=== PATIENT | male | born 1975 | race African-American/Black ===

== ENCOUNTER 2017-01-16 19:17 | Inpatient (IN) | payer MEDICARE ==
--- NOTE | ~2017-01-16 | HP ---
Unit #: [id number] #: [id number] Patient: MARILEE LYONS [id number] [address] [place], [place] [address] [id number] I MR#: [id number] NAME: MARILEE LYONS ROOM: 332 Age: 41 Sex: M Admission Date: 01/17/2017 : 1975 Attending Physician: Pily Lamb M.D. Primary Care Physician: No Primary Care Physician HISTORY AND PHYSICAL CHIEF COMPLAINT Chest pain, nausea, vomiting, low grade fever. HISTORY This pleasant 41-year-old male with IDDM, hypertension, CAD, is admitted for nausea, vomiting, low grade fever and chest pain. The patient states that he was in his usual state of health until two weeks prior to admission when he noticed orthostatic lightheadedness. Two days ago began to experience vague non-radiating chest discomfort with shortness of breath and generalized myalgias. Yesterday, nausea, vomiting, feeling hot and diaphoretic. Underwent his usual dialysis yesterday. He presented to this emergency department this evening with a low grade temperature but his other vital signs were stable. In the ER, he had multiple episodes of non-bloody nausea and vomiting, became quite diaphoretic and tachycardic with these episodes. He was treated with Zofran, morphine, given vancomycin after IV blood cultures, and I asked that Reglan and a small dose of Lopressor be administered. The patient has not been able to keep down his usual medicines today. EKG is unchanged. Cardiac enzymes are negative. PAST MEDICAL HISTORY 1. End stage renal failure, on hemodialysis Tuesdays, and Saturdays by Dr. Johnston. The patient has a left upper arm shunt which is not working, and has a right chest dialysis catheter. 2. DVT and PE anticoagulated with Coumadin. 3. Hypothyroidism. 4. IDDM with gastroparesis. 5. Essential hypertension. 6. History of orthostatic hypotension. 7. GERD. 8. CAD with a chronically occluded obtuse marginal branch with collaterals on cardiac catheterization 11/2015. Normal ejection fraction. 9. GERD. 10. I and D of a facial abscess. 11. 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 ALLERGIES No known drug allergies. HOME MEDICATIONS The best we can determine include: 1. NovoLog 20 units in the morning, 26 units at lunch and dinner. Unit #: [id number] #: [id number] Patient: MARILEE LYONS 2. Levemir 45 units in the morning, 40 units in the evening. 3. P.r.n. Phenergan. 4. Zanaflex 2 mg q.6 hours p.r.n. 5. Coumadin 7.5 mg daily as directed. 6. Hydrocodone 7.5 q.4 hours as needed. 7. Cymbalta 60 mg b.i.d. 8. Lasix 40 mg b.i.d. 9. Norvasc 10 mg daily. 10. Aspirin 81 mg daily. 11. Lipitor 80 mg daily. 12. Coreg 25 mg b.i.d. 13. Clonidine 0.3 mg t.i.d. 14. Imodium. 15. Imdur 60 mg daily. 16. Synthroid 0.05 mg daily. 17. Linzess 145 mg q. a.m. 18. Reglan 5 mg q.i.d. FAMILY HISTORY CAD. SOCIAL HISTORY The patient lives alone. Lifelong nonsmoker, does not drink alcohol. REVIEW OF SYSTEMS Chest pain, diaphoresis, feeling hot, renal failure, CAD, diabetes, gastroparesis, blood clots, hypertension, hyperlipidemia, GERD, above mentioned surgeries, chronic wound over the left foot. Nausea, vomiting, possible lightheadedness. All other systems were reviewed and are otherwise negative. PHYSICAL EXAMINATION GENERAL APPEARANCE: 51-year-old male who becomes quite diaphoretic and tachycardic while vomiting. VITAL SIGNS: Temperature 99.2, pulse 100, respirations 17, blood pressure 128/85. O2 saturation 100% on room air. HEENT: Eyes PERRLA. Extraocular muscles are intact. Pharynx is benign with poor dentition. NECK: Supple without adenopathy or thyromegaly. CHEST: Clear. CARDIAC: Normal S1 and S2 without definite murmur. There is a dialysis catheter in the right upper chest, minimally tender at the insertion site with sutures present. ABDOMEN: Bowel sounds are present. The patient is tender in the epigastric right and left upper quadrants without rebound or guarding. No hepatosplenomegaly. EXTREMITIES: Without edema. Pedal pulses are diminished. There is an ulcer plantar aspect left foot lateral MCP area. Status post amputation of the fourth and fifth toes. NEUROLOGIC EXAM: The patient is awake, alert, oriented. Cranial nerves are intact. Equal strength throughout. DIAGNOSTIC STUDIES LABORATORY: Admission labs - hematocrit is 40.8, normal white count and platelet count. INR is 5, PTT is 69. SMA-12 - glucose 203, BUN 43, creatinine 5.1, sodium 132, chloride is 94. Protein 8.6, alkaline phos. 101, lactic is 2.1. Unit #: [id number] #: [id number] Patient: MARILEE LYONS Cardiac markers negative. IMAGING: Head CT - chronic left thalamic appearing CVA, arterial calcifications. Chest x-ray - no acute disease. CARDIOVASCULAR: EKG - sinus rhythm, rate 88. Nonspecific ST wave abnormalities which are unchanged from before. ASSESSMENT 1. Nausea and vomiting which may be related to gastroparesis. 2. Low grade temperature, rule out right chest dialysis catheter infection. 3. Episodes of nonspecific chest pain in patient with known coronary artery disease. 4. Coumadin toxicity. 5. History of deep venous thrombosis/pulmonary embolism. 6. End stage renal failure, on hemodialysis Tuesdays, and Saturdays. 7. Hypothyroidism. 8. Insulin dependent diabetes mellitus with gastroparesis. 9. Hypertension. 10. Hyperlipidemia. 11. Left foot ulcer, [facility]. PLANS 1. Serial cardiac enzymes, consult cardiology. 2. Hold Coumadin until INR decreases. 3. IV Reglan, Zofran, place on proton pump inhibitor for now. 4. Antibiotics pending blood culture results. Will also ask for a urinalysis. 5. Patient's distributor publications to consult. 6. Check amylase, lipase. 7. Further workup depending on above. Dictated by Pily Lamb M.D. VINITA/travis TD: 01/17/2017 05:04 JOB #: [id number] HISTORY AND PHYSICAL Page 1 of 1 X Pily Lamb MD HISTORY AND PHYSICAL
--- NOTE | ~2017-01-16 | CO ---
Unit #: [id number] #: [id number] Patient: MARILEE LYONS [id number] [facility]. [place] [address] [facility]. [place], [place] [address] [id number] I MR#: [id number] NAME: MARILEE LYONS ROOM: 332 Age: 41 Sex: M Admission Date: 01/16/2017 : 1975 Attending Physician: Lvaern Weeks M.D. Primary Care Physician: No Primary Care Physician CONSULTATION REPORT HISTORY OF PRESENT ILLNESS This is a 41-year-old -S[place]i male who has a history of having previous stents placed a few years back and had his last heart catheterization in 2015 that reveals a chronic occlusion to the origin of the first obtuse marginal branch of the circumflex that had good collaterals and widely patent stents. Ejection fraction is 55% to 60%. He is a diabetic, has hypertension, hyperlipidemia, chronic kidney disease, has been on dialysis, history of DVT and PEs on Coumadin, who came to the emergency room yesterday after having a couple days of nausea and vomiting, abdominal pain and low-grade fever. Patient had been started on dialysis in October. He had a fistula but says he was in [facility] the first December with the fistula clotted. He now has a [facility] for his dialysis. According to the patient, he was at dialysis on Tuesday and something happened to the equipment that they only ran him 30 minutes on the machine. He went back Tuesday and did have his dialysis session completed. He says though he was feeling some nausea and was just not feeling well on Tuesday. After he left dialysis on Tuesday he had to insole tack puller hand on the way home and throw up. He said that he then has been having persistent nausea and nonbloody emesis. He denies any diarrhea. He says he just feels generalized muscle aches and having a low-grade fever. He did have reports of having some substernal chest tightness when he was vomiting but he said he denied any of the chest discomfort radiating up into his neck, bilateral jaws, shoulders, arms or elbows. He said he was very lightheaded on the day of admission but denies any presyncope or syncopal episodes. He would have some diaphoresis and feeling hot and flushed while he was vomiting. Next, in the emergency room patient's blood pressure was elevated and he did have an episode of emesis and his blood pressure was 128/85, heart rate was 100, respirations 18, temperature 99.2, O2 sats 100% on room air. Initial cardiac enzymes are negative. The patient's creatinine is 5.2 and sodium 131, potassium is 3.7, lactic acid is 21. His INR is 5.0. Patient was not able to take any of his oral medications the whole day before admission. He was started on IV fluids and IV antibiotics after culture was obtained. He also received some IV morphine and Zofran. Chest x-ray did not show anything acute and a CT of his head did not show anything acute but a chronic small lacunar infarct. Cardiology consulted to assist with evaluation and management. Patient says he sees Dr. Valentine and has an appointment with him in a couple of weeks. PAST MEDICAL HISTORY 1. Coronary artery disease. Previous PCI and stent x2 in the origin of the first obtuse marginal, followed by a stent to the distal vessel. Unit #: [id number] #: [id number] Patient: MARILEE LYONS Details unavailable. 2. Last reported cardiac cath 11/[address] Garcia at [facility] revealed an EF of 60%, left main was normal, LAD had a proximal 40% stenosis and a mid 40% to 50% stenosis. Next, ramus intermedius branch had a 30% to 40% stenosis. Next, the circumflex had an occlusion to the origin of the first obtuse marginal branch but it had good collaterals with a widely patent stent in the distal vessel. Next, RCA had a 50% proximal stenosis and a 40% to 50% mid stenosis. 3. In 05/2016 Lexiscan-Cardiolite stress test at [facility] ejection fraction 61%, no ischemia. 4. In 05/2016 two-D echo LVEF of 55% to 60% with moderate left ventricular hypertrophy and mild mitral regurgitation. 5. Hypertension. 6. Diabetes mellitus type 2. 7. Hyperlipidemia. 8. Chronic kidney disease, now on dialysis. 9. Hypothyroidism. 10. History of deep vein thrombosis and PE, on Coumadin. 11. Gastroesophageal reflux disease. 12. Nonsmoker. 13. Orthostatic hypotension. PAST SURGICAL HISTORY 1. Status post PCI and stents at the origin of the first obtuse marginal and also to the distal obtuse marginal branch. 2. I/D of a facial abscess. 3. Amputation of the first and fifth toes on the left foot. HOME MEDICATIONS 1. NovoLog 20 units subcu q.a.m. and 26 units at lunch and supper. 2. Levemir 45 units subcu q.a.m. and 40 units subcu q.p.m. 3. P.r.n. Phenergan. 4. Zanaflex 2 mg q.6 h. p.r.n. 5. Coumadin 7.5 mg p.o. daily as directed. 6. Hydrocodone 7.5 mg q.4 h. p.r.n. 7. Cymbalta 60 mg p.o. b.i.d. 8. Lasix 40 mg p.o. b.i.d. 9. Norvasc 10 mg p.o. daily. 10. Lipitor 80 mg p.o. daily. 11. Aspirin 81 mg p.o. daily. 12. Carvedilol 25 mg one tablet p.o. b.i.d. 13. Clonidine 0.3 mg t.i.d. 14. Imodium p.r.n. 15. Imdur 60 mg one tablet p.o. daily. 16. Synthroid 0.05 mg p.o. daily. 17. Linzess 145 mg p.o. q.a.m. 18. Reglan 5 mg p.o. q.i.d. ALLERGIES No known drug allergies. SOCIAL HISTORY Patient lives alone in an apartment. He has been a lifelong nonsmoker, no alcohol or illicit drug abuse. FAMILY HISTORY Noted for coronary artery disease; his mother had a heart attack in her 60s but is currently living and well. Unit #: [id number] #: [id number] Patient: MARILEE LYONS REVIEW OF SYSTEMS See details in HPI. PHYSICAL EXAMINATION GENERAL: On exam Mr. Lyons is a 41-year-old -Somali male in no acute respiratory distress. He is awake, alert and oriented. VITAL SIGNS: Blood pressure is high this morning at 194/100, heart rate is 96, the respirations 18, temperature 98.0, O2 sats 99% on room air. NECK: Trachea midline. No thyromegaly or lymphadenopathy. Normal carotid upstrokes. No jugular venous distention. HEART: S1, S2, regular rate and rhythm. No clicks, murmur or rubs. LUNGS: Very diminished. ABDOMEN: Soft, with tenderness palpating midquadrant areas. EXTREMITIES: Pedal pulses are palpable. No pedal edema. DIAGNOSTIC STUDIES LABORATORY DATA: Glucose is 175, BUN 43, creatinine 5.2, eGFR is 14.7, sodium 131, potassium is 3.7, chloride 95, CO2 24, calcium is 9.7, total protein 8.6, albumin 4.0, total bilirubin 0.5, AST 24, ALT 33, alkaline phosphatase is 101, amylase is 44, lipase is 41, lactic acid 2.1, WBCs 11.6, hemoglobin 14.6, hematocrit 44.5 and platelets 237. Initial cardiac enzymes: CK-MB is 15.2 with a troponin less than 0.05, CK-MB is 12.6 and troponin less than 0.05. Repeat cardiac enzymes CK total 1243, MB is 10.9, %MB 2.0 and troponin 0.04. Pro-time is 56.2 with an INR of 5.0, today's INR is 4.8. Urinalysis shows 3+ leukocyte esterase, 3+ protein, 50 of glucose, 1+ blood. Urine and blood cultures are pending. IMAGING: Chest x-ray shows nothing acute. No pulmonary infiltrates. CT of the head without IV contrast: No evidence of acute intracranial abnormalities but there is a chronic appearing small lacunar infarct in the left thalamus. CARDIOVASCULAR: EKG shows normal sinus rhythm, left atrial enlargement, some nonspecific ST/T-wave abnormality in lateral leads. Left ventricular hypertrophy. Poor R-wave progression. IMPRESSION 1. Nausea, vomiting and abdominal pain. Questionable diabetic gastroparesis. 2. Low-grade fever. 3. Has a history of a right chest dialysis port. 4. Coumadin toxicity. 5. History of coronary artery disease, previous percutaneous coronary intervention and stents to the first obtuse marginal branch of the circumflex. See details in HPI of other findings on the last cardiac cath 11/2015. 6. Atypical chest pain. 7. Malignant hypertension. 8. Diabetes mellitus type 2. 9. Hyperlipidemia. 10. Hypothyroidism. 11. History of deep vein thrombosis and pulmonary embolism, on Coumadin. 12. History of orthostatic hypotension. 13. Gastroesophageal reflux disease. 14. Nonsmoker. Unit #: [id number] #: [id number] Patient: MARILEE LYONS PLAN 1. Cardiology consult to assist with evaluation and management. Patient had some chest discomfort when he was vomiting and coughing, most likely GI in nature, pleuritic. Continue to monitor Cardiac enzymes and EKGs. So far the cardiac enzymes are negative. 2. The patient is very hypertensive this morning. His blood pressure was 215/90 mmHg and when it was rechecked it was 194/90 mmHg. Patient is not able to hold down any oral medications at this point due to his nausea and vomiting so will order some hydralazine q.4 h. p.r.n. for systolic blood pressure above 160 mmHg. 3. Holding the patient's Coumadin as he is over anticoagulated and will check a level in the morning. 4. Will continue to monitor and at this point no cardiac ischemic heart disease workup needed at this point. 5. Nephrology will manage the patient's end-stage renal disease and instead of taking oral clonidine start of clonidine patch has been ordered. 6. There is no evidence of any acute bleeding. His hemoglobin and hematocrit are stable. 7. Will treat patient for a possible UTI. Cultures are pending. 8. Plan is to have dialysis today and to remove 4 kg. 9. His dialysis may also help his hypertension. Thank you very much for allowing us to assist in his care. Dictated by... Ashley Mccartney A.P.R.N. for Pasquale Torres/hitesh TD: 01/17/2017 18:08 JOB #: [id number] CONSULTATION REPORT Page 1 of 1 X Ashley Mccartney APRN X CONSULTATION REPORT
--- NOTE | ~2017-01-16 | CR72 ---
[facility] A Service of [facility] & [facility] RADIOLOGY TEXT RESULTS PATIENT: MARILEE LYONS LOCATION: [facility] 332-01 : 75 UNIT #: [id number] AGE: [address]: Lavern Weeks MD SEX: M ORDER DR: [id number] [facility] [address]. [place], [place] [address] [id number] I MR#: [id number] Acc #: [id number] NAME: MARILEE LYONS : 1975 SEX: M STUDY DATE/TIME: 01/16/2017 20:23 UNIT: A PCU ROOM: [facility] STUDY DESCRIPTION: CR Chest Single View Portable Attending Physician: Pily Lamb M.D. Ordering Physician: Luis E Odell D.O. Primary Care Physician: Primary Care Physician No MEDICAL IMAGING REPORT This report is preliminary unless electronic signature is present EXAM Portable chest. HISTORY Chest pain for 2 days. FINDINGS Right IJ dual-lumen catheter tip is in the right atrium 2 cm beyond the junction of the SVC and right atrium. No pneumothorax. Relatively low lung volumes. Cardiac size and pulmonary vascularity are within normal limits. No infiltrates are identified. The lateral left costophrenic sulcus is partly excluded. IMPRESSION No acute findings. Low lung volumes. No pulmonary infiltrates. Dictated by... Doug Headley M.D. THIS IS AN ELECTRONICALLY VERIFIED REPORT Doug Headley M.D. at 01/17/2017 1:55 PM GERMAIN/alysha TD: 01/17/2017 01:16 JOB #: [id number] MEDICAL IMAGING REPORT Page 1 of 1 COPY
--- NOTE | ~2017-01-16 | CT71 ---
[facility] A Service of [facility] & [facility] RADIOLOGY TEXT RESULTS PATIENT: MARILEE LYONS LOCATION: [facility] 332-01 : 75 UNIT #: [id number] AGE: [address]: Lavern Weeks MD SEX: M ORDER DR: [id number] [facility] [address] [facility]. [place], [place] [address] [id number] I MR#: [id number] Acc #: [id number] NAME: MARILEE LYONS : 1975 SEX: M STUDY DATE/TIME: 01/16/2017 20:34 UNIT: A PCU ROOM: [facility] STUDY DESCRIPTION: CT Head Wo Contrast Attending Physician: Pily Lamb M.D. Ordering Physician: Luis E Odell D.O. Primary Care Physician: Primary Care Physician No MEDICAL IMAGING REPORT This report is preliminary unless electronic signature is present EXAM CT head without IV contrast. COMPARISON None. INDICATION 41-year-old male with dizziness for [address] exam was performed with one or more of the following radiation dose reduction techniques: automatic exposure control, adjustment of mA and/or kV according to patient size, and iterative reconstruction. FINDINGS Multiple innumerable subcutaneous nodular densities are noted within the scalp and extending down over the maxillary regions and extending over the zygomas. These may reflect benign skin lesions. Mastoid air cells, middle ears and visualized paranasal sinuses are well-aerated. Cerumen in the external ear canals. Calcifications of the cavernous internal carotid arteries as well as the bilateral vertebral arteries. No acute fractures or suspicious osseous lesions. Normal cerebral volume. No mass effect or abnormal extraaxial fluid collection. Artifact from the inner table of the calvaria is seen in the left middle and posterior cranial fossae. No evidence of acute intracranial hemorrhage or acute ischemia. There appears to be a remote lacunar infarct of the left thalamus, technically age indeterminate given lack of comparisons. IMPRESSION 1. No evidence of acute intracranial abnormality. There is a chronic-appearing small lacunar infarct in the left thalamus. This is technically age indeterminate given lack of comparisons. 2. Multiple subcutaneous lesions apparently involving the skin overlying [facility] A Service of [facility] & [facility] RADIOLOGY TEXT RESULTS PATIENT: MARILEE LYONS LOCATION: [facility] 332-01 : [birth year] UNIT #: [id number] AGE: [address]: Lavern Weeks MD SEX: M ORDER DR: the scalp and the bilateral face. Clinical correlation recommended. These are most likely benign skin lesions. 3. Arterial calcifications. No evidence of acute intracranial abnormality. Dictated by... Marquise Rondon M.D. THIS IS AN ELECTRONICALLY VERIFIED REPORT Marquise Rondon M.D. at 01/20/2017 8:49 AM VANIA/alysha TD: 01/17/2017 02:30 JOB #: [id number] MEDICAL IMAGING REPORT Page 1 of 1 COPY
--- NOTE | ~2017-01-16 | CO ---
Unit #: [id number] #: [id number] Patient: MARILEE LYONS [id number] [address] [address] [id number] I MR#: [id number] NAME: MARILEE LYONS ROOM: 332 Age: 41 Sex: M Admission Date: 01/16/2017 : 1975 Attending Physician: Lavern Weeks M.D. Consultation Date: 01/17/2017 CONSULTATION REPORT REASON FOR CONSULTATION Malignant hypertension, end-stage renal disease. HISTORY OF PRESENT ILLNESS The patient is a 41-year-old, Afro-Surinamese male with significant past medical history of ESRD, on hemodialysis on Tuesday, Tuesday, Tuesday and doing better, but he was mainly admitted to the hospital, because of the persistent nausea, vomiting, not feeling better. He does have a history of diabetic gastroparesis and at the time of admission, the patient's blood pressure is running very high. Recent systolic blood pressure is around 190 and diastolic around 100. The patient is still complaining of nausea, vomiting, abdominal symptoms and some headaches too. The patient is unable to take p.o. medication. IV hydralazine was given with minimal improvement. The patient is on clonidine and some of the blood pressure is associated with rebound hypertension secondary to clonidine. PAST MEDICAL HISTORY Significant for CKD stage 5, on ESRD; also history of hypertension; diabetes mellitus; also history of some coronary artery disease and also history of diabetic foot ulcer, still has a dressing on the right foot. FAMILY HISTORY Significant for coronary artery disease. SOCIAL HISTORY The patient lives at home by himself. He is a lifelong smoker. PHYSICAL EXAMINATION GENERAL: The patient is a middle-aged male, not in any acute distress. VITAL SIGNS: Last blood pressure is 195/100, pulse is 100, temperature is 98. HEAD AND NECK: Pupils are reactive to light. Mucous membrane is moist. NECK: Supple. No JVD. CHEST: The patient has bilateral air entry with some rhonchi. HEART: Regular rate and rhythm. No murmur. No gallop. ABDOMEN: Soft with minimal epigastric discomfort. No guarding. No rigidity. EXTREMITIES: Mild edema, otherwise unremarkable. There is a dressing on the right foot. Peripheral pulses are palpable on the left foot. DIAGNOSTIC STUDIES LABORATORY RESULTS: Showed the patient's procalcitonin level is normal. Troponin 0.04. Creatinine is 5.2, BUN 43, glucose 175, potassium 3.7, sodium 135 and calcium 9.7. White cell count is 11 with a hemoglobin of 14. Unit #: [id number] #: [id number] Patient: MARILEE LYONS ASSESSMENT AND PLAN 1. Malignant hypertension, likely causes as the patient is unable to take medicine, because of nausea, vomiting and causing rebound hypertension. He is on clonidine and that is one of the reason. At this time, we will try to get his home medications. We will give antiemetic medications. Follow up with repeat blood pressure if not getting better. May need to convert to Catapres patch. 2. End-stage renal disease. We will get the hemodialysis done today. Ultrafiltration is needed, but it should be minimal, because the patient's hemoglobin is 14.6. I do not see much edema on the patient. The patient seemed to be somewhat hemoconcentrated at this time. 3. Diabetes mellitus with gastroparesis. 4. Fever. We will follow up the blood cultures. The patient has a hemodialysis catheter on the right side of the chest and we will rule out any acute infection. 5. Diabetic foot ulcer. We will follow up with electric relay tester. PLAN At this time, we will restart home medications. The patient will need a hemodialysis today. Thank you for letting me participate in taking care of this patient. Dictated by... Pasquale Grajeda/ren TD: 01/18/2017 03:38 JOB #: [id number] CONSULTATION REPORT Page 1 of 1 X Norman Oliver MD CONSULTATION REPORT
--- NOTE | ~2017-01-16 | DS ---
Unit #: [id number] #: [id number] Patient: MARILEE LYONS [id number] [address] [address] [id number] I MR#: [id number] NAME: MARILEE LYONS ROOM: 332 Age: 41 Sex: M Admission Date: 01/16/2017 : 1975 Discharge Date: 01/18/2017 Attending Physician: Lavern Weeks M.D. Primary Care Physician: No Primary Care Physician DISCHARGE SUMMARY PRINCIPAL DIAGNOSES 1. Nausea, vomiting secondary to gastroparesis plus/minus viral gastroenteritis, now resolved. 2. Hypertensive urgency secondary to inability to keep down pills, now resolved. 3. Super therapeutic Coumadin without evidence of bleed. 4. Endstage renal disease, maintained on hemodialysis Tuesday, Tuesday and Tuesday. 5. History of DVT and PE, maintained on Coumadin therapy. 6. Diabetes mellitus type 1, with associated gastroparesis and peripheral neuropathy. Hemoglobin A1c 9.5 in 10/2016. 7. Chronic left foot ulcer. 8. Normocytic anemia. Hemoglobin 12.6 upon discharge. 9. Depression. 10. Hypothyroidism. 11. Gastroesophageal reflux disease. 12. Coronary artery disease. CONSULTANTS Dr. Oliver, nephrology. Dr. Hdez, cardiology. DIAGNOSTIC DATA IMAGING: Chest x-ray on 01/16/2017 with low lung volumes. CT of the head without contrast on 01/16/2017 with no evidence of acute abnormality. Chronic small lacunar infarct in the left thalamus. Multiple subcutaneous lesions involving the skin over the scalp and bilateral face. CLINICAL HISTORY/HOSPITAL COURSE Mr. Lyons is a 41-year-old male with a history of diabetes and endstage renal disease. He presented to the emergency department with nausea, vomiting and questionable fever. Please refer to history and physical for further details. The patient was found to be significantly hypertensive in the emergency department. He was complaining of chest pain. EKG was unremarkable and troponin was negative. He was having intractable nausea and vomiting. He was subsequently admitted. In regard to the patient's chest pain, Dr. Hdez was consulted. Chest pain was significantly atypical and troponins remained unremarkable. He will be continued on his home cardiac medications. Unit #: [id number] #: [id number] Patient: MARILEE LYONS In regard to the patient's elevated blood pressure, he was temporarily placed on IV medication due to his nausea and vomiting. He is now tolerating his pills. Blood pressure is stable. Dr. Oliver was consulted regarding the patient's endstage renal disease and he did undergo hemodialysis on 01/17/2017 without complication. The patient's nausea and vomiting have resolved. I am going to increase his diet to constant carb today and if he is able to tolerate it I think he can be discharged home. I will write him some p.r.n. Phenergan and continue him on scheduled Reglan. DISCHARGE CONDITION Stable. DISPOSITION Discharge to home. DISCHARGE MEDICATIONS 1. Reglan 10 mg p.o. q.i.d., 3 times with meals and once at bedtime. 2. Renagel 800 mg b.i.d. 3. Aspirin 81 mg daily. 4. Eloy 7.5/325 mg 1 tablet p.o. q.4 h. p.r.n. pain. 5. Protonix 40 mg daily with 1 refill. 6. Tizanidine 2 mg q.6 h. p.r.n. pain. 7. Levothyroxine 50 mcg p.o. daily. 8. Imdur ER 60 mg daily. 9. Folic acid 1 mg daily. 10. Thiamine 100 mg daily. 11. Linzess 145 mcg with breakfast. 12. Clonidine 0.3 mg t.i.d. 13. Levemir 30 units in the morning and 30 units at bedtime when oral intake has improved. 14. NovoLog 20 units with breakfast and lunch, 26 units with meals when intake is normal. 15. Coumadin 6.5 mg daily, to be restarted on 01/21/2017. 16. Cymbalta 60 mg b.i.d. 17. Phenergan 25 mg p.o. q.6 h. p.r.n. nausea and vomiting, # given 20. 18. Pravastatin 80 mg daily. 19. Coreg 25 mg b.i.d. 20. Norvasc 10 mg daily. 21. Lasix 40 mg b.i.d. DIET The patient was instructed to follow a constant carb diet. He will continue Accu-Cheks and (1) at home. He is to do heart healthy diet as well. FOLLOWUP 1. The patient will follow up with his primary care provider as previously scheduled. 2. Continue hemodialysis Tuesday, Tuesday and Tuesday. 3. He needs INR done on , 01/20/2017, with results called to who has been managing his Coumadin. 4. The patient is to follow up with Dr. Valentine in four to six weeks. Time for discharge was 37 minutes. Unit #: [id number] #: [id number] Patient: LYONSMARILEE Dictated by... Lavern Weeks M.D. SHELBY/john TD: 01/18/2017 10:46 JOB #: [id number] DISCHARGE SUMMARY Page 1 of 1 X Lavern Weeks MD X DISCHARGE SUMMARY
--- NOTE | ~2017-01-16 | EKG ---
PATIENT: MARILEE LYONS UNIT #: [id number] Ventricular Rate: 88 BPM Atrial Rate: 88 BPM P-R Interval: 128 ms QRS Duration: 96 ms Q-T Interval: 396 ms QTC Calculation(Bezet): 479 ms P [place]: 39 degrees Calculated R [place]: -3 degrees Calculated T [place]: 106 degrees Diagnosis Line: Normal sinus rhythm Diagnosis Line: Possible Left atrial enlargement Diagnosis Line: ST and T wave abnormality, consider lateral ischemia Diagnosis Line: Abnormal ECG Diagnosis Line: When compared with ECG of 02-NOV-2016 07:23, Diagnosis Line: Premature atrial complexes are no longer Present Diagnosis Line: Confirmed by THEODORA LUNSFORD MD ([id number]) on 01/16/2017 Diagnosis Line: 11:01:52 PM INTERPRETING MD: ISATU RIBEIRO
[~2017-01-16 19:17] MED LIST: ACTOS PO; AMARYL PO; APIDRA INSULIN; ASPIRIN PO; ASPIRIN81 MG PO; ATORVASTATIN CA80 MG PO; AVALIDE 300-251 TAB PO; B-1100 MG PO; CADUET; CADUET 10 MG/401 TAB PO; CADUET 10 MG/801 TAB PO; CADUET PO; CARVEDILOL25 MG PO; CLONIDINE HCL0.3 MG PO; COUMADIN5 MG PO; CYMBALTA20 MG PO; DIFLUCAN PO; FLEXERIL PO; FOLIC ACID PO; GLUCOPHAGE XR500 MG PO; HUMALOG MIX 75/10 ML SUBQ; HUMALOG100 U/ML SUBQ; HYDRALAZINE HCL25 MG PO; HYDROCODON-ACE1 EAC9 PO; IMDUR-ER60 M1 PO; INDOMETHACIN25 MG PO; KEFLEX500 MG PO; KETOPROFEN PO; LANTUS100 U/ML; LASIX PO; LEVAQUIN PO; LEVAQUIN250 MG PO; LEVEMIR FL100 UNIT/1 INJ; LEVEMIR FLEX PEN SUBQ; LEVEMIR100 U/ML; LEVIMIR; LEVIMIR SUBQ; LINZESS145 MCG PO; LIPITOR PO; LISINOPRIL20 MG PO; METFORMIN HCL500 M1; METFORMIN HCL500 M1 PO; METFORMIN PO; METOLAZONE5 MG PO; NORCO 5/325 TAB1 TAB PO; NOVOLOG FL100 UNIT/1 INJ; NOVOLOG FL100 UNIT/1 SUBQ; NOVOLOG100 U/ML SUBQ; PHARMACY; PHENERGAN PO; PHENERGAN25 MG PO; REGLAN10 MG PO; RENAGEL800 MG PO; SYNTHROID0.05 MG PO; ULTRAM PO; UNK B/P MED; VICODIN 5/500 T1 TAB PO; ZITHROMAX PO; [UNRECOGNIZED DRUG - OTHER]; [UNRECOGNIZED DRUG - SUPPLY]
[2017-01-16 20:37] LABS: BASOPHIL# 0.1 X10e3 (0-0.3); BASOPHIL% 0.5 % (0-2.5); EOSINOPHIL# 0.1 X10e3 (0-0.7); EOSINOPHIL% 1.4 % (0.0-7.0); HEMATOCRIT 40.8 % (38.0-50.0); HEMOGLOBIN 13.8 gm/dL (13.0-16.0); LYMPHOCYTE# 2.2 X10e3 (1.0-3.5); LYMPHOCYTE% 21.1 % (17.0-45.0); MEAN CELL VOLUME 85.6 FL (83-96); MEAN CORPUSCULAR HEMOGLOBIN 28.9 PG (28-34); MEAN CORPUSCULAR HGB CONC 33.8 g/dL (30-36); MEAN PLATELET VOLUME 8.1 FL (6.5-11.5); MONOCYTE# 0.9 X10e3 (0-1.0); MONOCYTE% 9.2 % (3.0-12.0); NEUTROPHIL% 67.8 % (40-75); PLATELET COUNT 239 X10e3 (140-420); RED BLOOD COUNT 4.77 X10e (3.90-5.60); RED CELL DISTRIBUTION WIDTH 15.6 % (11.0-15.5); WHITE BLOOD COUNT 10.3 X10e3 (4.0-10.5)
[2017-01-16 20:38] LABS: DIFF IND NO
[2017-01-16 20:44] LABS: POC - CKMB 15.2 ng/mL (0.0-7.9); POC - TROPONIN <0.05 ng/mL (<=0.05)
[2017-01-16 21:00] LABS: BILIRUBIN, DIRECT 0.1 mg/dL (0.0-0.2); BILIRUBIN,INDIRECT 0.4 mg/dL (0.0-0.9); BILIRUBIN,TOTAL 0.5 mg/dL (0.2-2.0); BUN/CREATININE RATIO 8.43; CALCIUM SERUM 9.5 mg/dL (8.4-10.2); CREATININE SERUM 5.1 mg/dL (0.6-1.4); POTASSIUM 3.7 mmol/L (3.5-5.1); PROTEIN TOTAL SERUM 8.6 g/dL (6.0-8.3)
[2017-01-16 21:12] LABS: PARTIAL THROMBOPLASTIN TIME 68.9 SECONDS (23.5-31.3); PROTHROMBIN TIME (PATIENT) 56.2 SECONDS (9.6-11.5)
[2017-01-16 23:19] LABS: POC - CKMB 12.6 ng/mL (0.0-7.9); POC - TROPONIN <0.05 ng/mL (<=0.05)
[2017-01-17 00:31] LABS: BASOPHIL# 0.1 X10e3 (0-0.3); BASOPHIL% 0.4 % (0-2.5); EOSINOPHIL# 0.2 X10e3 (0-0.7); EOSINOPHIL% 1.4 % (0.0-7.0); HEMATOCRIT 44.5 % (38.0-50.0); HEMOGLOBIN 14.6 gm/dL (13.0-16.0); LYMPHOCYTE# 2.8 X10e3 (1.0-3.5); LYMPHOCYTE% 24.4 % (17.0-45.0); MEAN CORPUSCULAR HEMOGLOBIN 28.6 PG (28-34); MEAN CORPUSCULAR HGB CONC 32.9 g/dL (30-36); MEAN PLATELET VOLUME 8.7 FL (6.5-11.5); MONOCYTE# 1.1 X10e3 (0-1.0); MONOCYTE% 9.1 % (3.0-12.0); NEUTROPHIL# 7.5 X10e3 (1.5-7.1); NEUTROPHIL% 64.7 % (40-75); PLATELET COUNT 237 X10e3 (140-420); RED BLOOD COUNT 5.11 X10e (3.90-5.60); RED CELL DISTRIBUTION WIDTH 15.9 % (11.0-15.5); WHITE BLOOD COUNT 11.6 X10e3 (4.0-10.5)
[2017-01-17 00:32] LABS: DIFF IND NO
[2017-01-17 00:40] LABS: BUN/CREATININE RATIO 8.26; CALCIUM SERUM 9.7 mg/dL (8.4-10.2); CREATININE SERUM 5.2 mg/dL (0.6-1.4); GLOM FILT RATE Estimated 14.7 mL/min (>60); POTASSIUM 3.7 mmol/L (3.5-5.1)
[2017-01-17] MEDS ORDERED: NORVASC10 MG PO (02:17)
[2017-01-17] MEDS ORDERED: CLONIDINE HCL0.3 MG PO (02:20)
[2017-01-17] MEDS ORDERED: LOMOTIL 2.5-0.1 EACH (02:21)
[2017-01-17] MEDS ORDERED: TIZANIDINE HCL2 M1 PO (02:30)
[2017-01-17 07:30] LABS: URINE BLOOD 1+ (NEG); URINE GLUCOSE 50 MG/DL (NORM); URINE KETONE NEG (NEG); URINE LEUKOCYTE ESTERASE 3+ (NEG); URINE NITRATE NEG (NEG); URINE PROTEIN 3+ (NEG); URINE SPECIFIC GRAVITY 1.025 (1.003-1.035); URINE UROBILINOGEN NORM (NORM)
[2017-01-17 07:38] LABS: URINE APPEARANCE SL CLOUDY; URINE COLOR YELLOW
[2017-01-17 07:39] LABS: URINE BILIRUBIN NEG (NEG)
[2017-01-17 09:30] LABS: PROTHROMBIN TIME (PATIENT) 53.7 SECONDS (9.6-11.5)
[2017-01-17 09:39] LABS: INR 4.8
[2017-01-17 11:13] LABS: MB 10.9 ng/ml
[2017-01-17 14:04] LABS: %MB 2.1 % (0.0-4.0); MB 11.4 ng/ml
[2017-01-18 05:22] LABS: HEMATOCRIT 38.2 % (38.0-50.0); MEAN CELL VOLUME 87.2 FL (83-96); MEAN CORPUSCULAR HEMOGLOBIN 28.7 PG (28-34); MEAN CORPUSCULAR HGB CONC 32.9 g/dL (30-36); RED BLOOD COUNT 4.38 X10e (3.90-5.60); RED CELL DISTRIBUTION WIDTH 15.6 % (11.0-15.5); WHITE BLOOD COUNT 6.3 X10e3 (4.0-10.5)
[2017-01-18 05:32] LABS: HEMOGLOBIN 12.6 gm/dL (13.0-16.0)
[2017-01-18 05:36] LABS: PROTHROMBIN TIME (PATIENT) 58.1 SECONDS (9.6-11.5)
[2017-01-18 05:38] LABS: INR 5.2
[2017-01-18 06:19] LABS: BUN/CREATININE RATIO 5.65; CALCIUM SERUM 8.8 mg/dL (8.4-10.2); CREATININE SERUM 4.6 mg/dL (0.6-1.4); POTASSIUM 3.6 mmol/L (3.5-5.1)
[2017-01-18] MEDS ORDERED: PROTONIX PO (17:00)
[2017-01-18] MEDS ORDERED: PHENERGAN25 M1 PO (17:01)
== END 2017-01-18 18:31 | disposition home or self-care (01) | DRG 73 ==
LOC: CED 19:17 → CEDOF 23:45 → C3A PCU 01-17 01:10
PROVIDERS: Emergency Medicine; Internal Medicine
PROC: 5A1D00Z (ICD-10-PCS; principal; 2017-01-17)
DX: E10.43 Type 1 diabetes mellitus with diabetic autonomic (poly)neuropathy (principal); N18.6 End stage renal disease; I12.0 Hypertensive chronic kidney disease with stage 5 chronic kidney disease or end stage renal disease; E10.621 Type 1 diabetes mellitus with foot ulcer; K31.84 Gastroparesis; Z79.4 Long term (current) use of insulin; A08.4 Viral intestinal infection, unspecified; I16.0 Hypertensive urgency; F17.210 Nicotine dependence, cigarettes, uncomplicated; Z99.2 Dependence on renal dialysis; E10.40 Type 1 diabetes mellitus with diabetic neuropathy, unspecified; D64.9 Anemia, unspecified; F32.9 Major depressive disorder, single episode, unspecified; E03.9 Hypothyroidism, unspecified; K21.9 Gastro-esophageal reflux disease without esophagitis; I25.10 Atherosclerotic heart disease of native coronary artery without angina pectoris; Z95.5 Presence of coronary angioplasty implant and graft; R07.89 Other chest pain; T45.515A Adverse effect of anticoagulants, initial encounter; Y92.9 Unspecified place or not applicable; E78.5 Hyperlipidemia, unspecified; R50.9 Fever, unspecified; Z86.73 Personal history of transient ischemic attack (TIA), and cerebral infarction without residual deficits; Z86.718 Personal history of other venous thrombosis and embolism; Z86.711 Personal history of pulmonary embolism; Z79.01 Long term (current) use of anticoagulants; Z89.422 Acquired absence of other left toe(s); Z82.49 Family history of ischemic heart disease and other diseases of the circulatory system
CPT/HCPCS: 36415; 70450; 71010; 80048; 80076; 80202; 81003; 82150; 82308; 82550; 82553; 82947; 83605; 83690; 84484; 85025; 85027; 85610; 85730; 87040; 87086; 93005; 96374; 96375; 96376; 99285; J0360; J0692; J1644; J1815; J2270; J2405; J2550; J2765; J3370; J3490

== ENCOUNTER 2017-01-31 08:37 | Observation (INO) | payer MEDICARE ==
--- NOTE | ~2017-01-31 | DS ---
Unit #: [id number] #: [id number] Patient: MARILEE LYONS [id number] [address] [address] [id number] I MR#: [id number] NAME: MARILEE LYONS ROOM: 303 Age: 41 Sex: M Admission Date: 01/31/2017 : 1975 Discharge Date: 02/01/2017 Attending Physician: Lavern Weeks M.D. Primary Care Physician: Primary Care Physician No DISCHARGE SUMMARY PRINCIPAL DIAGNOSES 1. Atypical chest pain, musculoskeletal. 2. Endstage renal disease, maintained on hemodialysis, Tuesday, Tuesday, Tuesday. 3. Hypertension, controlled. 4. Diabetes mellitus type 1 with associated diabetic gastroparesis and peripheral myelopathy. This is uncontrolled. 5. History of deep vein thrombosis and pulmonary embolus, maintained on Coumadin therapy. INR currently pending. 6. Chronic normocytic anemia. 7. Hypothyroidism. 8. Depression. 9. Gastroesophageal reflux disease. 10. Coronary artery disease. 11. Obesity. CONSULTANTS Dr. Bakari Johnston, Nephrology. Dr. Phillips, Cardiology. PROCEDURES 1. Cardiolite stress test which is currently pending. 2. Chest x-ray on January 31, 2017, with low lung volumes, no other acute findings. 3. CT of the head without contrast on January 31, 2017, with no acute abnormality. There is right parieto-encephalomalacia that is stable. CLINICAL HISTORY AND HOSPITAL COURSE Mr. Lyons is a 41-year-old male who presents to the emergency department with complaints of chest pain. Please refer to H and P for further details. Troponins were negative in the emergency department. An EKG revealed normal sinus rhythm. The patient was subsequently placed on observation for evaluation. Regards to patient's chest pain, Dr. Phillips was consulted. Patient's chest pain was reproducible to palpation and is likely musculoskeletal. However, given his multiple risk factors, he underwent Cardiolite stress test, results of which are currently pending. Anticipated if this is negative, the patient can be discharged home in follow-up with Cardiology as needed on an outpatient basis. Dr. Johnston was consulted, regarding patient's need for hemodialysis. He underwent hemodialysis on January 31 without complication and will continue outpatient hemodialysis on Tuesday, Tuesday and Tuesday. Unit #: [id number] #: [id number] Patient: MARILEE LYONS Patient continues to suffer from uncontrolled blood pressure. Medications were adjusted during hospitalization. Blood pressure now is looking much more improved at 144/92. We will continue these current medications again. This can be followed up by hemodialysis. Patient maintained on chronic Coumadin therapy due to his history of DVT and PE. INR is currently pending. We will adjust the dose of Coumadin as necessary. I anticipate discharge home again if Cardiolite is negative. DISCHARGE CONDITION Stable. DISCHARGE STATUS Discharge to home. DISCHARGE MEDICATIONS 1. Coumadin 7.5 mg daily. 2. Cymbalta 60 mg b.i.d. 3. Phenergan 25 mg p.o. q.6 hours p.r.n. for nausea and vomiting. 4. Coreg 25 mg 1-1/2 tablets p.o. b.i.d. 5. Norvasc 10 mg daily. 6. Lipitor 20 mg at bedtime. 7. Hydralazine 100 mg b.i.d. 8. Levemir 45 units in the morning and 40 units at bedtime. 9. Vitamin B Complex/Vitamin C 1 tablet daily. 10. Aspirin 81 mg daily. 11. Lortab 7.5/325 mg 1 tablet every 4 hours, p.r.n. for pain. 12. Protonix 40 mg daily. 13. Zanaflex 4 mg p.o. every 6 hours. DISCHARGE INSTRUCTIONS The patient was instructed to follow a heart healthy constant carb diet. He will continue Accu-Cheks a.c. and h.s. at home. He can increase activity as tolerated. Will be maintained on hemodialysis, Tuesday, Tuesday and Tuesday. FOLLOW UP Again, the patient will continue hemodialysis, Tuesday, Tuesday and Tuesday. He will follow-up with his primary care provider in 4 weeks. Dictated by... Lavern Weeks M.D. SHELBY/charo TD: 02/01/2017 21:52 JOB #: [id number] Unit #: [id number] #: [id number] Patient: MARILEE LYONS DISCHARGE SUMMARY Page 1 of 1 X Lavern Weeks MD DISCHARGE SUMMARY
--- NOTE | ~2017-01-31 | CT71 ---
[facility] A Service of [facility] RADIOLOGY TEXT RESULTS PATIENT: MARILEE LYONS LOCATION: [facility] 303 : 75 UNIT #: [id number] AGE: [address]: Lavern Weeks MD SEX: M ORDER DR: [id number] [facility] [address] [place], [place] [address] [id number] I MR#: [id number] Acc #: [id number] NAME: MARILEE LYONS : 1975 SEX: M STUDY DATE/TIME: 01/31/2017 16:10 UNIT: C3A PCU ROOM: 303 STUDY DESCRIPTION: CT Head Wo Contrast Attending Physician: Aziza Johnston M.D. Ordering Physician: Raad Phillips M.D. Primary Care Physician: Primary Care Physician No MEDICAL IMAGING REPORT This report is preliminary unless electronic signature is present EXAM Head CT, no contrast, 01/31/2017 PROCEDURE Axial unenhanced head CT. This CT exam was performed with one or more of the following radiation dose reduction techniques: Automatic exposure control, adjustment of mA and/or kV according to patient size, and iterative reconstruction. COMPARISON Prior head CT, 01/16/2017 HISTORY Nausea and dizziness since last night. FINDINGS There is no intracranial hemorrhage or mass. There is no hydrocephalus or extraaxial fluid collection. There is an area of right parietal cortical encephalomalacia, but no acute intracranial abnormality is seen. The skull base and calvarium are otherwise unremarkable. IMPRESSION No acute abnormality. Redemonstrated area of right parietal encephalomalacia, but no acute abnormality. No interval change since 01/16/2017. Dictated by... Eyad Thomas M.D. THIS IS AN ELECTRONICALLY VERIFIED REPORT Eyad Thomas M.D. at 02/02/2017 1:23 PM [facility] A Service of [facility] RADIOLOGY TEXT RESULTS PATIENT: MARILEE LYONS LOCATION: [facility] : 75 UNIT #: [id number] AGE: [address]: Lavern Weeks MD SEX: M ORDER DR: STERLING/shannon TD: 01/31/2017 21:51 JOB #: [id number] MEDICAL IMAGING REPORT Page 1 of 1 COPY
--- NOTE | ~2017-01-31 | HP ---
Unit #: [id number] #: [id number] Patient: MARILEE LYONS [id number] [address] [address] [id number] E MR#: [id number] NAME: MARILEE LYONS ROOM: Age: 41 Sex: M Admission Date: 01/31/2017 : 1975 Attending Physician: Luis E Odell D.O. Primary Care Physician: No Primary Care Physician HISTORY AND PHYSICAL CHIEF COMPLAINT Chest pain. HISTORY OF PRESENT ILLNESS The patient is a 41-year-old male with a history of insulin dependent diabetes mellitus, hypertension, coronary artery disease, brought to the emergency room complaining of chest pain. The patient stated he started having sharp chest pain that started at 8 p.m. last evening, mid sternal, radiating to the back. He was also complaining of nausea and vomiting times one. Associated dizziness with standing. No syncopal episode. The patient's troponins remained negative and the EKG shows normal sinus rhythm. The patient is being admitted for observation of the chest pain. The patient is also on hemodialysis. Last dialysis was on Tuesday. PAST MEDICAL HISTORY 1. Endstage renal disease on dialysis. 2. DVT. 3. PE on Coumadin. 4. Hypothyroidism. 5. Insulin dependent diabetes. 6. Gastroparesis. 7. Hypertension. 8. History of orthostatic hypotension. 9. Gastroesophageal reflux disease. 10. Coronary artery disease. PAST SURGICAL HISTORY 1. Incision and drainage of (1) abscess. 2. 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 SOCIAL HISTORY The patient lives alone. Lifelong nonsmoker. Does not drink alcohol. No illicit drug abuse. FAMILY HISTORY Positive for coronary artery disease. ALLERGIES No known drug allergies. HOME MEDICATIONS 1. Vitamin B complex. 2. Cymbalta. Unit #: [id number] #: [id number] Patient: MARILEE LYONS 3. Phenergan. 4. Pantoprazole. 5. Warfarin. 6. Levemir. 7. Two Dot. 8. Coreg. 9. Tizanidine. 10. Norvasc. REVIEW OF SYSTEMS Fourteen point review of systems performed and only pertinent positive findings are described above. The remaining are negative. PHYSICAL EXAMINATION GENERAL: The patient is lying in bed, not in acute distress. VITALS: Temperature 98.2, pulse 80, respiratory rate 16, blood pressure 149/57, oxygen saturation 100% on room air. HEENT: Head atraumatic, normocephalic. Pupils equal, round and reactive to light and accommodation. Extraocular movements are intact. NECK: Supple. LUNGS: Decreased air entry at the bases. CHEST: The patient has a hemodialysis catheter at the right side of the chest. HEART: Regular rate and rhythm. EXTREMITIES: The patient has an AV fistula, not matured, on the left upper extremity. NEUROLOGIC: Awake, alert and oriented. No gross focal motor deficits. DIAGNOSTIC STUDIES LABORATORY: Glucose 292, BUN 57, creatinine 3.6, sodium 134, potassium 3.6, chloride 99, bicarb 22, calcium 8.9, total protein 7.6, albumin 3.7, AST 19, ALT 21, alkaline phosphatase 101, lipase 32. White blood cell count 10.9, hemoglobin 12, hematocrit 35.8, platelets 194. CARDIOVASCULAR: EKG shows normal sinus rhythm, no acute ST-T changes. ASSESSMENT 1. Chest pain. Rule out ischemia. 2. Endstage renal disease on hemodialysis. 3. History of DVT and PE on anticoagulation. PLAN Admit the patient to observation with chest pain and endstage renal disease on hemodialysis. Fluids are heplock. Cardiac diet. The patient will serial troponins and will be seen by cardiology and started on Lovenox. Continue with Coreg. The patient will be seen by nephrology for the dialysis today. Further recommendations will follow as more lab results are available. Dictated by Pasquale Moore TD: 01/31/2017 15:19 JOB #: [id number] Unit #: [id number] #: [id number] Patient: MARILEE LYONS HISTORY AND PHYSICAL Page 1 of 1 X X HISTORY AND PHYSICAL
--- NOTE | ~2017-01-31 | CR63 ---
[facility] A Service of [facility] RADIOLOGY TEXT RESULTS PATIENT: MARILEE LYONS LOCATION: [facility] : 75 UNIT #: [id number] AGE: [address]: Luis E Odell DO SEX: M ORDER DR: [id number] [facility] [address] [place], [place] [address] [id number] MR#: [id number] Acc #: [id number] NAME: MARILEE LYONS : 1975 SEX: M STUDY DATE/TIME: 01/31/2017 11:10 UNIT: [facility] ROOM: STUDY DESCRIPTION: CR Chest 2 View Attending Physician: Luis E Odell D.O. Ordering Physician: Luis E Odell D.O. Primary Care Physician: No Primary Care Physician MEDICAL IMAGING REPORT This report is preliminary unless electronic signature is present EXAM Chest, 2 views, 01/31/2017, 1110 hours. CLINICAL HISTORY 41-year-old man complaining of chest pain and shortness of air for 1 day. History of insulin dependent diabetes and CHF and hypertension. COMPARISON 01/16/2017 FINDINGS Single upright portable view demonstrates stable right central venous catheter with inferior tip in the right atrium. Lung volumes are low. Cardiac, mediastinal, and hilar contours are within normal limits. Lungs are clear and there are no effusions. IMPRESSION 1. Low lung volume film with no acute cardiopulmonary findings. No appreciable change from 01/16/2017. 2. Stable right central venous catheter with tip in the upper right atrium. Dictated by... Anat Jarrett M.D. THIS IS AN ELECTRONICALLY VERIFIED REPORT Anat Jarrett M.D. at 01/31/2017 2:26 PM LUCAS/martha TD: 01/31/2017 13:48 JOB #: [id number] [facility] A Service of [facility] RADIOLOGY TEXT RESULTS PATIENT: MARILEE LYONS LOCATION: [facility] : 75 UNIT #: [id number] AGE: [address]: Luis E Odell DO SEX: M ORDER DR: MEDICAL IMAGING REPORT Page 1 of 1 COPY
--- NOTE | ~2017-01-31 | EKG ---
PATIENT: MARILEE LYONS UNIT #: [id number] Ventricular Rate: 78 BPM Atrial Rate: 78 BPM P-R Interval: 144 ms QRS Duration: 96 ms Q-T Interval: 408 ms QTC Calculation(Bezet): 465 ms P [place]: 50 degrees Calculated R [place]: -29 degrees Calculated T [place]: 75 degrees Diagnosis Line: Normal sinus rhythm Diagnosis Line: Normal ECG Diagnosis Line: When compared with ECG of 16-JAN-2017 19:17, Diagnosis Line: ST no longer depressed in Lateral leads Diagnosis Line: Confirmed by MICHAEL YOUNGER MD ([id number]) on Diagnosis Line: 02/01/2017 1:29:03 PM INTERPRETING MD: CARISA RIBEIRO
--- NOTE | ~2017-01-31 | ST ---
Unit #: [id number] #: [id number] Patient: MARILEE LYONS [id number] [facility]. [place] [address] [facility]. [place], [place] [address] [id number] I MR#: [id number] NAME: MARILEE LYONS : 1975 SEX: M STUDY DATE/TIME: 02/01/2017 UNIT: C3A PCU ROOM: 303 STUDY DESCRIPTION: Attending Physician: Lavern Weeks M.D. Primary Care Physician: No Primary Care Physician CARDIOLOGY REPORT EXAM Lexiscan Cardiolite stress test. FINDINGS Patient refused to do a walking Lexiscan. Baseline EKG: Normal sinus rhythm with ventricular rate 86 beats per minute, poor R-wave progression, left ventricular hypertrophy, RSR1 prime. PROCEDURE Lexiscan is a 4-minute test with Lexiscan being injected within the first minute followed by Cardiolite. EKG during the test was equivocal to baseline. No acute ischemic changes. The patient had no complaints of chest pain, palpitations, or dizziness. Had increased shortness of breath and fatigueness which resolved in recovery phase. Maximum heart rate response was 93 beats per minute with a maximum blood pressure response of 179/96 mmHg. Patient had no complaints of chest pain, palpitations, or dizziness. Had increased shortness of breath and fatigueness which resolved in recovery phase. Cardiolite was injected after Lexiscan within the first minute of the test. Radionuclide tests pending. Please correlate with nuclear images. Dictated by... Sekou Parra M.D. CEC/ch TD: 02/01/2017 12:08 JOB #: [id number] CARDIOLOGY REPORT Page 1 of 1 X Ashley Mccartney APRN CARDIOLOGY REPORT
--- NOTE | ~2017-01-31 | TH ---
Unit #: [id number] #: [id number] Patient: MARILEE LYONS [id number] [address] [address] [id number] I MR#: [id number] NAME: MARILEE LYONS : 1975 SEX: M STUDY DATE/TIME: 02/01/2017 UNIT: C3A PCU ROOM: 303 STUDY DESCRIPTION: Lexiscan Cardiolite, nuclear Attending Physician: Lavern Weeks M.D. Primary Care Physician: No Primary Care Physician CARDIOLOGY REPORT EXAM Exercise Cardiolite stress test, nuclear portion. PROCEDURE Using technetium-99m labeled Cardiolite, rest and stress SPECT images were obtained. Multiple SPECT images were obtained in various views including horizontal and vertical long axis and short axis views of the left ventricle. Images were obtained by gated SPECT method. Patient was administered 11.75 mCi of Cardiolite at rest. Patient was administered 34.9 mCi of Cardiolite after Lexiscan infusion was completed. On the stress images, there is no normal perfusion noted. The rest images show normal perfusion. Comparing rest and stress images, there is no obvious stress induced ischemia noted. The left ventricular ejection fraction is calculated to be 62%. There is no focal wall motion abnormality seen. CONCLUSIONS 1. No obvious stress induced ischemia noted. 2. The left ventricular ejection fraction is calculated to be 62%. 3. There is no focal wall motion abnormality seen. 4. Technically extremely limited study due to patient's body habitus and also due to difficulty in patient's IV access. Clinical correlation is requested. Dictated by... Pasquale Torres TD: 02/01/2017 14:28 JOB #: [id number] CARDIOLOGY REPORT Page 1 of 1 X Margaret Hdez MD <ELECTRONICALLY SIGNED> 04/09/17 1429 CARDIOLOGY REPORT
--- NOTE | ~2017-01-31 | HM ---
Unit #: [id number] #: [id number] Patient: MARILEE LYONS [id number] [facility]. [facility] [address] [facility]. [place], [place] [address] [id number] I MR#: [id number] NAME: MARILEE LYONS : 1975 SEX: M STUDY DATE/TIME: 01/31/2017 UNIT: C3A PCU ROOM: 303 STUDY DESCRIPTION: Attending Physician: Lavern Weeks M.D. Primary Care Physician: No Primary Care Physician CARDIOLOGY REPORT EXAM 24-hour Holter monitor. DATE APPLIED 01/31/2017 DATE SCANNED 02/03/2017 READ BY [facility] Cardiology. ORDERED BY Dr. Ambrosio. REASON FOR STUDY Chest pain and shortness of breath. FINDINGS Underlying rhythm is normal sinus rhythm with an average heart rate of 82 beats per minute, minimum heart rate of 46 beats per minute, and a maximum heart rate of 138 beats per minute. The minimum heart rate of 48 beats per minute is noted at 9:55 p.m. The maximum heart rate of 135 beats per minute is noted at 9:26 a.m. Patient had a 1.12 second pause noted at 1:48 a.m. Patient had 81 single premature ventricular complexes noted. No sustained ventricular arrhythmias seen. Patient has 143 single premature atrial complex noted. Patient did not record any symptoms. CONCLUSION 1. Underlying rhythm is normal sinus rhythm with an average heart rate of 82 beats per minute, minimum heart rate of 46 beats per minute, and a maximum heart rate of 138 beats per minute. 2. No sustained atrial or ventricular arrhythmias noted. 3. No significant pauses noted. 4. Occasional single multifocal premature ventricular complex and occasional single premature atrial complex noted. 5. The patient did not record any symptoms. Dictated by... Margaret Hdez M.D. Unit #: [id number] #: [id number] Patient: MARILEE LYONS ALBARO/davin TD: 02/09/2017 11:55 JOB #: [id number] CARDIOLOGY REPORT Page 1 of 1 X Margaret Hdez MD <ELECTRONICALLY SIGNED> 04/09/17 0847 [facility]IT[facility] REPORT
[~2017-01-31 08:37] MED LIST changes: +LOMOTIL 2.5-0.1 EACH; +NORVASC10 MG PO; +PHENERGAN25 M1 PO; +PROTONIX PO; +TIZANIDINE HCL2 M1 PO
[2017-01-31 10:07] LABS: BASOPHIL# 0.1 X10e3 (0-0.3); BASOPHIL% 0.5 % (0-2.5); EOSINOPHIL# 0.2 X10e3 (0-0.7); HEMATOCRIT 35.8 % (38.0-50.0); LYMPHOCYTE# 2.1 X10e3 (1.0-3.5); LYMPHOCYTE% 19.6 % (17.0-45.0); MEAN CELL VOLUME 87.2 FL (83-96); MEAN CORPUSCULAR HEMOGLOBIN 29.1 PG (28-34); MEAN CORPUSCULAR HGB CONC 33.4 g/dL (30-36); MEAN PLATELET VOLUME 8.2 FL (6.5-11.5); MONOCYTE# 0.7 X10e3 (0-1.0); MONOCYTE% 6.4 % (3.0-12.0); NEUTROPHIL# 7.8 X10e3 (1.5-7.1); NEUTROPHIL% 71.5 % (40-75); PLATELET COUNT 194 X10e3 (140-420); RED CELL DISTRIBUTION WIDTH 15.6 % (11.0-15.5); WHITE BLOOD COUNT 10.9 X10e3 (4.0-10.5)
[2017-01-31 10:13] LABS: DIFF IND NO
[2017-01-31 10:25] LABS: ALBUMIN SERUM 3.7 g/dL (3.5-5.0); ALKALINE PHOSPHATASE 101 U/L (32-92); ALT (SGPT) 21 U/L (10-40); AST (SGOT) 19 U/L (10-42); BILIRUBIN, DIRECT <0.1 mg/dL (0.0-0.2); BILIRUBIN,INDIRECT 0.3 mg/dL (0.0-0.9); BILIRUBIN,TOTAL 0.4 mg/dL (0.2-2.0); BLOOD UREA NITROGEN 57 mg/dL (9-23); BUN/CREATININE RATIO 15.83; CALCIUM SERUM 8.9 mg/dL (8.4-10.2); CARBON DIOXIDE 22 mmol/L (22-31); CHLORIDE 99 mmol/L (100-111); CREATININE SERUM 3.6 mg/dL (0.6-1.4); GLOM FILT RATE Estimated 22.9 mL/min (>60); GLUCOSE FASTING 292 mg/dL (70-110); POTASSIUM 3.6 mmol/L (3.5-5.1); PROTEIN TOTAL SERUM 7.6 g/dL (6.0-8.3); SODIUM 134 mmol/L (135-145)
[2017-01-31 11:06] LABS: POC - CKMB 7.6 ng/mL (0.0-7.9); POC - TROPONIN <0.05 ng/mL (<=0.05)
[2017-01-31 12:44] LABS: POC - CKMB 5.3 ng/mL (0.0-7.9); POC - TROPONIN <0.05 ng/mL (<=0.05)
[2017-01-31] MEDS ORDERED: PATIENT'S PHARMACY (13:02)
[2017-01-31] MEDS ORDERED: B COMPLEX1 EACH PO (13:05)
[2017-01-31] MEDS ORDERED: PHENERGAN PO (13:07)
[2017-01-31] MEDS ORDERED: DULOXETINE HCL60 MG PO (13:07)
[2017-01-31] MEDS ORDERED: PANTOPRAZOLE SO40 MG PO (13:08)
[2017-01-31] MEDS ORDERED: WARFARIN SODIU7.5 M1 PO (13:08)
[2017-01-31] MEDS ORDERED: LEVEMIR FL100 UNIT/1 (13:09)
[2017-01-31] MEDS ORDERED: CARVEDILOL25 MG PO (13:10)
[2017-01-31] MEDS ORDERED: TIZANIDINE HCL2 MG PO (13:10)
[2017-01-31] MEDS ORDERED: NORCO 7.5-3251 EACH PO (13:10)
[2017-01-31] MEDS ORDERED: NORVASC10 MG PO (13:11)
[2017-01-31 15:26] LABS: URINE SOURCE CLEAN CATCH
[2017-01-31 15:32] LABS: URINE APPEARANCE CLEAR; URINE BILIRUBIN NEG (NEG); URINE BLOOD TRACE (NEG); URINE COLOR YELLOW; URINE GLUCOSE >1000 MG/DL (NEG); URINE KETONE NEG (NEG); URINE LEUKOCYTE ESTERASE NEG (NEG); URINE NITRATE NEG (NEG); URINE PROTEIN 2+ (NEG); URINE SPECIFIC GRAVITY 1.015 (1.003-1.035); URINE UROBILINOGEN 0.2 MG/DL (NEG)
[2017-01-31 15:36] LABS: CULTURE INDICATED? NO; URBCS1 AUWI 0-2 /[HPF] (0-2); URINE BACTERIA AUWI NEG (NEGATIVE); URINE SQUAMOUS EPITHELIAL CELL NONE SEEN /[HPF]; UWBCS1 AUWI 0-2 (0-5)
[2017-01-31 15:40] LABS: AMPHETAMINE NEG (NEG); BARBITURATES NEG (NEG); BENZODIAZEPINES NEG (NEG); COCAINE NEG (NEG); MARIJUANA NEG (NEG); OPIATES NEG (NEG); TRICYCLIC ANTIDEPRESSANTS NEG (NEG); U METHADONE NEG (NEG)
[2017-01-31 20:44] LABS: %MB 3.3 % (0.0-4.0); MB 7.1 ng/ml
[2017-02-01 02:37] LABS: %MB 3.1 % (0.0-4.0); MB 7.4 ng/ml
[2017-02-01 08:45] LABS: BASOPHIL% 0.3 % (0-2.5); EOSINOPHIL# 0.2 X10e3 (0-0.7); EOSINOPHIL% 1.8 % (0.0-7.0); HEMATOCRIT 37.2 % (38.0-50.0); HEMOGLOBIN 12.5 gm/dL (13.0-16.0); LYMPHOCYTE# 1.5 X10e3 (1.0-3.5); LYMPHOCYTE% 15.8 % (17.0-45.0); MEAN CELL VOLUME 85.3 FL (83-96); MEAN CORPUSCULAR HEMOGLOBIN 28.6 PG (28-34); MEAN CORPUSCULAR HGB CONC 33.5 g/dL (30-36); MEAN PLATELET VOLUME 8.3 FL (6.5-11.5); MONOCYTE# 0.8 X10e3 (0-1.0); MONOCYTE% 8.4 % (3.0-12.0); NEUTROPHIL# 7.2 X10e3 (1.5-7.1); NEUTROPHIL% 73.7 % (40-75); PLATELET COUNT 174 X10e3 (140-420); RED BLOOD COUNT 4.36 X10e (3.90-5.60); RED CELL DISTRIBUTION WIDTH 15.6 % (11.0-15.5); WHITE BLOOD COUNT 9.7 X10e3 (4.0-10.5)
[2017-02-01 08:47] LABS: DIFF IND NO
[2017-02-01 11:29] LABS: ALBUMIN SERUM 3.5 g/dL (3.5-5.0); BILIRUBIN,TOTAL 0.3 mg/dL (0.2-2.0); BUN/CREATININE RATIO 13.5; CALCIUM SERUM 8.8 mg/dL (8.4-10.2); GLOM FILT RATE Estimated 46.7 mL/min (>60); MAGNESIUM 1.6 mg/dL (1.6-3.0); PHOSPHOROUS 2.2 mg/dL (2.5-4.6); POTASSIUM 3.5 mmol/L (3.5-5.1); PROTEIN TOTAL SERUM 7.7 g/dL (6.0-8.3)
[2017-02-01 14:24] LABS: INR 1.3; PROTHROMBIN TIME (PATIENT) 14.4 SECONDS (9.6-11.5)
[2017-02-01] MEDS ORDERED: CARVEDILOL25 MG PO (14:36)
[2017-02-01] MEDS ORDERED: HYDRALAZINE HC100 MG PO (14:39)
[2017-02-01] MEDS ORDERED: LIPITOR20 MG PO (14:39)
[2017-02-01] MEDS ORDERED: ASPIRIN81 MG PO (14:40)
[2017-02-04 00:56] LABS: HEP B SURFACE AG Nonreactive (Nonreactive); HEPATITIS B SURFACE ANTIBODY 5 mIU/mL (>=10)
== END 2017-02-01 18:33 | disposition home or self-care (01) ==
LOC: CED 08:37 → C3A PCU 14:00 → CEDOF 14:00 → CED 17:28 → CEDOF 17:28 → C3A PCU 21:16 → CEDOF 21:16 → C3A PCU 21:16
PROVIDERS: Emergency Medicine; Internal Medicine; Internal Medicine Cardiovascular Disease; Nurse Practitioner
DX: R07.89 Other chest pain (principal); I12.0 Hypertensive chronic kidney disease with stage 5 chronic kidney disease or end stage renal disease; E10.22 Type 1 diabetes mellitus with diabetic chronic kidney disease; N18.6 End stage renal disease; Z99.2 Dependence on renal dialysis; E10.43 Type 1 diabetes mellitus with diabetic autonomic (poly)neuropathy; K31.84 Gastroparesis; E10.65 Type 1 diabetes mellitus with hyperglycemia; Z79.4 Long term (current) use of insulin; Z79.01 Long term (current) use of anticoagulants; Z86.711 Personal history of pulmonary embolism; Z86.718 Personal history of other venous thrombosis and embolism; D64.9 Anemia, unspecified; E03.9 Hypothyroidism, unspecified; F32.9 Major depressive disorder, single episode, unspecified; K21.9 Gastro-esophageal reflux disease without esophagitis; I25.10 Atherosclerotic heart disease of native coronary artery without angina pectoris; E66.9 Obesity, unspecified; Z89.422 Acquired absence of other left toe(s); Z95.5 Presence of coronary angioplasty implant and graft; I34.0 Nonrheumatic mitral (valve) insufficiency
CPT/HCPCS: 36415; 70450; 71020; 78452; 80048; 80053; 80076; 80307; 81003; 82550; 82553; 82947; 83690; 83735; 84100; 84484; 85025; 85610; 86706; 87340; 93005; 93017; 93225; 93226; 96372; 99285; A9500; C9113; G0378; J1650; J1815; J2405; J2785